=== PATIENT | female | born 1975 | race Caucasian/White ===

== ENCOUNTER 2022-09-18 14:13 | Emergency (ER) | payer OTHER ==
[2022-09-18] MEDS ORDERED: Dexamethasone 10 MG/ML VIAL ONE (15:04)
== END 2022-09-18 15:27 | disposition home or self-care (01) ==
LOC: CSHERS 14:13
DX: J06.9 Acute upper respiratory infection, unspecified (principal); E11.9 Type 2 diabetes mellitus without complications; E78.5 Hyperlipidemia, unspecified; I10 Essential (primary) hypertension
CPT/HCPCS: 71045; 87804; J1100

== ENCOUNTER 2022-11-18 09:10 | Outpatient (CLI) | payer OTHER, MEDICAID | END 2022-11-18 09:11 | disposition home or self-care (01) | LOC: CSHMRI 09:10 | PROVIDERS: ATTEND Family Medicine | DX: M54.12 Radiculopathy, cervical region (principal); M47.812 Spondylosis without myelopathy or radiculopathy, cervical region | CPT/HCPCS: 72141 ==

== ENCOUNTER 2023-08-10 08:40 | Outpatient (CLI) | payer OTHER, MEDICAID | END 2023-08-10 08:41 | disposition home or self-care (01) | LOC: CSHMRI 08:40 | PROVIDERS: ATTEND Otolaryngology | DX: H91.8X3 Other specified hearing loss, bilateral (principal) | CPT/HCPCS: 70553 ==

== ENCOUNTER 2024-04-18 11:41 | Outpatient (CLI) | payer OTHER ==
[2024-04-18 12:48] LABS: Chloride 105 mmol/L (98-107); Potassium 3.8 mmol/L (3.5-5.1); Sodium 140 mmol/L (136-145)
[2024-04-18 13:01] LABS: Anion Gap 15 mmol/L (10-20); BUN (Urea Nitrogen) 17 mg/dL (7.0-18.7); Calc. Creatinine Clearance 0 mL/min (70-130); Calcium 9.6 mg/dL (7.8-10.44); Carbon Dioxide 24 mmol/L (22-29); Estimated GFR 103; Glucose 166 mg/dL (70-105)
== END 2024-04-18 11:42 | disposition home or self-care (01) ==
LOC: CSHLAB 11:41
PROVIDERS: ATTEND Podiatrist Foot & Ankle Surgery
DX: Z01.818 Encounter for other preprocedural examination (principal); M20.12 Hallux valgus (acquired), left foot; M25.572 Pain in left ankle and joints of left foot; T84.84XA Pain due to internal orthopedic prosthetic devices, implants and grafts, initial encounter
CPT/HCPCS: 80048; 93005; 93010

== ENCOUNTER 2024-06-22 20:44 | Emergency (ER) | payer MEDICAID, MEDICARE ==
[2024-06-23] MEDS ORDERED: Acetaminophen 500 MG TAB ONE (01:37)
[2024-06-23] MEDS ORDERED: Diclofenac 1% 50 GM TOPICAL GEL TP SCH (02:00)
== END 2024-06-23 03:26 | disposition home or self-care (01) ==
LOC: CSHERS 20:44
DX: S83.91XA Sprain of unspecified site of right knee, initial encounter (principal); E11.42 Type 2 diabetes mellitus with diabetic polyneuropathy; E78.5 Hyperlipidemia, unspecified; Z79.899 Other long term (current) drug therapy; Z96.652 Presence of left artificial knee joint; X50.1XXA Overexertion from prolonged static or awkward postures, initial encounter; Y93.89 Activity, other specified
CPT/HCPCS: 99283